=== PATIENT | female | born 1955 | race Caucasian/White ===

== ENCOUNTER → 2016-07-24 | Outpatient (CLI) | payer BC ==
[~2016-07-24] MED LIST: CHOL100010 PO; MULT-513 PO; OMEG10007 PO
== END | disposition home or self-care (01) ==
LOC: C.PAPS 14:05
PROVIDERS: ATTEND Obstetrics & Gynecology
DX: Z01.419 Encounter for gynecological examination (general) (routine) without abnormal findings (principal)

== ENCOUNTER → 2016-10-22 | Outpatient (CLI) | payer BC ==
--- NOTE | 2016-10-22 16:26 | MAMMOGRAPHY REPORT ---
BILATERAL DIGITAL SCREENING MAMMOGRAM TOMOSYNTHESIS WITH CAD: 10/22/2016 CLINICAL HISTORY: Routine screening. Patient has no complaints. TECHNIQUE: Breast tomosynthesis in addition to standard 2D mammography was performed. Current study was also evaluated with a Computer Aided Detection (CAD) system. COMPARISON: Comparison is made to exams dated: 10/07/2015 mammogram - [facility], 10/04/2014 mammogram, 09/21/2013 mammogram, and 09/12/2012 mammogram. BREAST COMPOSITION: There are scattered areas of fibroglandular density in both breasts. FINDINGS: There is a stable metallic biopsy marker in the left breast. A stable benign rim calcifica tion in the right breast. No suspicious mass, architectural distortion or cluster of suspicious micr ocalcifications is seen. IMPRESSION: ACR BI-RADS CATEGORY 1: NEGATIVE There is no mammographic evidence of malignancy. A 1 year screening mammogram is recommended. The pa tient will receive written notification of the results. Approximately 10% of breast cancers are not detected with mammography. A negative mammographic report should not delay biopsy if a clinically suggestive mass is present. Kaelyn Sunshine M.D. ay/:10/22/2016 14:45:54 Butter Liquefier: Marlys Jose, [facility] letter sent: Normal 1/2 BI-RADS Code: ACR BI-RADS Category 1: Negative
== END | disposition home or self-care (01) ==
LOC: C.MAMM 13:33
PROVIDERS: ATTEND Internal Medicine
DX: Z12.31 Encounter for screening mammogram for malignant neoplasm of breast (principal)

== ENCOUNTER → 2016-12-08 | Outpatient (CLI) | payer BC ==
--- NOTE | 2016-12-08 10:01 | DIAGNOSTIC IMAGING REPORT ---
RIGHT KNEE 3 VIEWS CLINICAL HISTORY: Right knee pain status post trauma COMPARISON: None. DISCUSSION: No acute fractures or dislocations are visualized. There is a dorsal patellar spur. There is equivocal small posterior loose body. IMPRESSION: Mild degenerative change. No acute fractures are visualized. Electronically signed by: Carson Love M.D. 12/08/2016 10:00 AM Dictated Date/Time: 12/08/2016 9:59 AM
--- NOTE | 2016-12-08 10:02 | DIAGNOSTIC IMAGING REPORT ---
RIGHT HIP UNILATERAL 2 VIEWS CLINICAL HISTORY: Right hip pain COMPARISON: None. DISCUSSION: No acute fractures or dislocations are visualized. There are labral calcifications present. There is a peritrochanteric calcification which appears chronic. IMPRESSION: No acute fractures. No erosive or destructive changes. Labral calcification. Electronically signed by: Carson Love M.D. 12/08/2016 10:01 AM Dictated Date/Time: 12/08/2016 10:00 AM
== END | disposition home or self-care (01) ==
LOC: C.RADBC 09:35
PROVIDERS: ATTEND Internal Medicine
DX: M25.551 Pain in right hip (principal); S89.91XA Unspecified injury of right lower leg, initial encounter; X58.XXXA Exposure to other specified factors, initial encounter

== ENCOUNTER → 2017-03-22 | Outpatient (CLI) | payer BC ==
[2017-03-22 11:31] LABS: ALT/SGPT 40 U/L (12-78); AST/SGOT 27 U/L (15-37); BLOOD UREA NITROGEN 13 mg/dl (7-18); BUN/CREATININE RATIO 20.6 (10-20); CALCIUM 8.7 mg/dl (8.5-10.1); CARBON DIOXIDE 27 mmol/L (21-32); CHLORIDE 105 mmol/L (98-107); CHOLESTEROL 235 mg/dl (0-200); CREATININE 0.63 mg/dl (0.60-1.20); GLUCOSE 89 mg/dl (70-99); SODIUM 139 mmol/L (136-145)
[2017-03-22 11:35] LABS: ALB/GLOB RATIO 1.1 (0.9-2); ALKALINE PHOSPHATASE 64 U/L (45-117); CHOLESTEROL/HDL RATIO 3.6; HDL CHOLESTEROL 66 mg/dl; LDL CHOLESTEROL CALCULATED 154 mg/dl; TRIGLYCERIDES 76 mg/dl (0-150); VERY LOW DENSITY LIPOPROT CALC 15 mg/dl
== END | disposition home or self-care (01) ==
LOC: C.LABBC 07:36
PROVIDERS: ATTEND Internal Medicine
DX: Z00.00 Encounter for general adult medical examination without abnormal findings (principal); Z87.19 Personal history of other diseases of the digestive system; E78.5 Hyperlipidemia, unspecified

== ENCOUNTER → 2017-07-26 | Outpatient (CLI) | payer BC | END | disposition home or self-care (01) | LOC: C.PAPS 14:02 | PROVIDERS: ATTEND Obstetrics & Gynecology | DX: Z01.419 Encounter for gynecological examination (general) (routine) without abnormal findings (principal) ==

== ENCOUNTER 2023-12-09 10:16 | Observation (INO) ==
--- NOTE | 2023-11-14 09:50 | PAT Medication Instructions ---
Medication Instructions Date of Service November 14, 2023 Home Medications cholecalciferol (vitamin D3) 25 mcg (1,000 unit) tablet 1,000 units PO QPM digestive enzymes 1 cap PO BID multivitamin (Daily Multi-Vitamin tablet) 1 tab PO QPM coenzyme Q10 200 mg capsule (Co Q-10) 100 mg PO QAM calcium carbonate (Calcium 500) 500 mg PO BID ipratropium bromide 21 mcg (0.03 %) nasal spray 2 spray intranasal BID PRN allergies pravastatin 20 mg tablet 20 mg PO QPM MEDICATION INSTRUCTIONS: Continue as directed ipratropium bromide 21 mcg (0.03 %) nasal spray 2 spray intranasal BID PRN allergies STOP taking 2 weeks before surgery coenzyme Q10 200 mg capsule (Co Q-10) 100 mg PO QAM DO NOT take the morning of surgery digestive enzymes 1 cap PO BID calcium carbonate (Calcium 500) 500 mg PO BID Take evening before surgery pravastatin 20 mg tablet 20 mg PO QPM cholecalciferol (vitamin D3) 25 mcg (1,000 unit) tablet 1,000 units PO QPM digestive enzymes 1 cap PO BID multivitamin (Daily Multi-Vitamin tablet) 1 tab PO QPM calcium carbonate (Calcium 500) 500 mg PO BID Other Notes Remember: NOTHING TO EAT OR DRINK AFTER MIDNIGHT If you have any questions please call us at [phone] or [phone] or [phone] or [phone]
--- NOTE | 2023-11-19 10:08 | Anesthesiology Consultation ---
Date of Service November 19, 2023 Assessment & Plan (1) Encounter for pre-operative examination: Chart Review Chart Review: Acceptable Risk for Surgery and Patient seen in Pre Admission Testing Teaching & Discussion Pre-Anesthesia Teaching/Discussion Notes: Instructed NPO after midnight before surgery, except medications with 15 cc of water. Medication instructions provided according to the PAT guidelines. History Surgery Operation Date: 12/09/23 12:10 Proposed Procedures p L3-L4, L4-L5 Lumbar Decompression - Aubrey Simon MD Height/Weight Height: 5 ft 3 in Weight: 55.3 kg Allergies Allergy/AdvReac Type Severity Reaction Status Date / Time Bactrim Allergy Mild RASH Verified 01/13/16 21:22 Cephalosporins Allergy Unknown RASH Verified 11/14/23 08:53 clindamycin Allergy Unknown PT NOT Verified 11/14/23 08:53 SURE REACTION fluoxetine [From Prozac] Allergy Unknown RASH, FACE Verified 11/14/23 08:53 SWELLING sulfamethoxazole Allergy Unknown RASH Verified 11/14/23 08:53 trimethoprim Allergy Unknown RASH Verified 11/14/23 08:53 minocycline AdvReac Unknown NAUSEA Verified 11/14/23 08:53 VOMITING moxifloxacin AdvReac Unknown NAUSEA Verified 11/14/23 08:53 VOMITING sertraline AdvReac Unknown N/V Verified 11/14/23 08:53 Medications Home Medications Medication Instructions Recorded Confirmed Last Taken cholecalciferol (vitamin D3) 25 1,000 units PO QPM 07/31/19 11/14/23 01/21/23 15:30 mcg (1,000 unit) tablet digestive enzymes 1 cap PO BID 07/31/19 11/14/23 07/26/21 multivitamin (Daily Multi-Vitamin 1 tab PO QPM 07/31/19 11/14/23 01/21/23 15:30 tablet) coenzyme Q10 200 mg capsule (Co 100 mg PO QAM 06/21/23 11/14/23 Unknown Q-10) calcium carbonate (Calcium 500) 500 mg PO BID 08/26/23 11/14/23 Unknown ipratropium bromide 21 mcg (0.03 2 spray intranasal BID PRN allegies 11/14/23 11/14/23 Unknown %) nasal spray pravastatin 20 mg tablet 20 mg PO QPM 11/14/23 11/14/23 Unknown Past Medical History Medical History (Updated 11/19/23 @ 12:27 by Aubrey Simon MD) Disc degeneration, lumbar GERD (gastroesophageal reflux disease) "silent reflux" History of anesthesia reaction reports trouble breathing with one surgery but most recent surgery was fine-patient unable to recall which surgery; sore throat with intubation in past Hypercholesterolemia Lumbar stenosis without neurogenic claudication Osteopenia after menopause Post-nasal drip chronic Seasonal affective disorder in remission Patient denies h/o stroke, seizures, heart attack, heart failure, DM, HTN, blood clots/DVTs or blood transfusions. Exercise / Class Metabolic Activity II 4-5 Yardwork/Stairs/Walk up hill (denies chest discomfort or shortness of breath with one flight of stairs) Past Family History Family History Grandfather Colorectal cancer paternal Father Myocardial infarction Mother , age 88 No problems noted. 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 History of repair of rotator cuff (2021) Right Shoulder Arthroscopy with Extensive Debridement History of tubal ligation Hx of bilateral cataract extraction (2021) Hx of LASIK S/P bilateral salpingo-oophorectomy S/P trigger finger release x 3, right hand Past Anesthesia History No Family Hx of Anesthesia Complications and Other (see above) History of PONV No Hx of PONV and No Hx of Motion Sickness Social History Smoking Status: Never smoker Do You Dip or Chew Tobacco: No Hx Alcohol Use: Yes Alcohol type: wine alcohol intake frequency: holidays/special occasions only Hx Substance Use: No substance use type: does not use Review of Systems Patient denies chest pain, shortness of breath, dyspnea on exertion, snoring, witnessed apneas, fever, chills, cough, wheezing, or palpitations. Physical Exam Vital Signs Vitals BP 118/73 P 72 TEMP 98.1 SP02 96% on RA RESP 18 Physical Patient resting comfortably in chair in no acute distress, alert and oriented, responding appropriately throughout visit Full cervical extension range of motion without pain TMD 3.5 finger breadths Mallampati Score 2 Dentition: intact, denies chipped or loose teeth, caps/crowns, implants or bridges Lungs: normal respiratory effort. Good air movement, clear throughout to auscultation, no adventitious breath sounds Cardiac: regular rate and rhythm, no murmurs noted Carotid arteries: negative bruit bilat Lab Results Anesthesia Preop Results Results Anesthesia Widget: WBC 6.66 K/ul (4.8-10.8) 11/19/23 Hgb 13.3 g/dl (12.0-16.0) 11/19/23 Hct 38.5 % (37.0-47.0) 11/19/23 Plt 258 K/uL (130-400) 11/19/23 Na 134 mmol/L (136-145) L 11/19/23 K 3.9 mmol/L (3.5-5.1) 11/19/23 Cl 104 mmol/L (98-107) 11/19/23 CO2 24 mmol/L (21-32) 11/19/23 BUN 18 mg/dl (6-23) 11/19/23 Creat 0.67 mg/dl (0.6-1.2) 11/19/23 Glucose Level 103 mg/dl (70-99(Fasting)) H 11/19/23 PT 10.9 Seconds (9.0-12.0) 11/19/23 PTT 27 Seconds (21-31) 11/19/23 INR 1.0 (0.9-1.1) 11/19/23 Blood Type O Positive 11/19/23 Antibody Screen NEGATIVE 11/19/23 Testing Electrocardiogram Date: 01/04/23 NSR, rate 64 bpm Nonspecific T wave abnormality Chest X-Ray Date: 11/19/23 No acute chest disease.
[2023-12-09] MEDS: LR 60ML/HR IV SCH (10:53)
[2023-12-09] MEDS ORDERED: PROMETHAZINE HCL 6.25 MG in SODIUM CHLORIDE 0.9% 50 ML IV PRN (12:06)
[2023-12-09] MEDS ORDERED: ePHEDrine sulfate 50 MG/ML AMP IV PRN (12:06)
[2023-12-09] MEDS ORDERED: HYDROmorphone INJ 2 MG/ML SYR/VIAL IV PRN (12:06)
[2023-12-09] MEDS ORDERED: HYDROmorphone INJ 1 MG/ML SYRINGE IV PRN (12:06)
[2023-12-09] MEDS ORDERED: fentaNYL citrate PF 100 MCG/2 ML VIAL IV PRN (12:06)
[2023-12-09] MEDS ORDERED: ONDANSETRON INJ 2 MG/ML 2 ML VIAL IV PRN ×2 (12:06→15:40)
[2023-12-09] MEDS ORDERED: ATROPINE SULFATE 0.1 MG/ML 10ML SYR IV PRN (12:06)
--- NOTE | 2023-12-09 12:39 | History & Physical Bridge Note ---
Date of Service December 09, 2023 History & Physical Bridge Note I have examined the patient, reviewed the History & Physical and in the interval since the performance of the History & Physical I have noted the following changes of clinical significance: no changes noted
[2023-12-09] MEDS ORDERED: MIDAZOLAM HCL 1 MG/ML 2ML VIAL ONE (12:53)
[2023-12-09] MEDS ORDERED: HYDROmorphone INJ 2 MG/ML SYR/VIAL ONE (12:53)
[2023-12-09] MEDS: ceFAZolin 2000MG 2,000 MG/15 ML SYR IV SCH (13:40)
[2023-12-09] MEDS ORDERED: ePHEDrine sulfate 50 MG/5 ML SYR ONE (13:51)
[2023-12-09] MEDS ORDERED: ROCURONIUM BROMIDE 10 MG/ML 5 ML VIAL IV ONE ×2 (14:04→14:21)
[2023-12-09] MEDS ORDERED: LIDOCAINE 2% 2 ML VIAL/AMP(20MG/ML) INFIL ONE (14:04)
[2023-12-09] MEDS ORDERED: PROPOFOL IV EMULSION 10 MG/ML 20 ML VIAL IV ONE (14:04)
[2023-12-09] MEDS ORDERED: DEXAMETHASONE SOD INJ 4 MG/ML VIAL ONE (14:04)
[2023-12-09] MEDS: BUPIVACAINE 0.5 % 5 MG/1 ML MPF 30ML VIAL ONE (15:16)
[2023-12-09] MEDS ORDERED: ONDANSETRON INJ 2 MG/ML 2 ML VIAL ONE (15:17)
[2023-12-09] MEDS ORDERED: SUGAMMADEX SODIUM 200 MG/2 ML VIAL IV ONE (15:18)
[2023-12-09] MEDS ORDERED: PHENYLEPHRINE 100MCG/ML 10ML SYR IV ONE (15:19)
[2023-12-09] MEDS: VANCOMYCIN HCL 1000MG/20ML VIAL ONE ×2 (15:20)
[2023-12-09] MEDS: FLOSEAL HEMOSTATIC MATRIX 10ML TOP ONE (15:21)
[2023-12-09] MEDS ORDERED: KETOROLAC 30 MG/ML VIAL ONE (15:26)
--- NOTE | 2023-12-09 15:36 | Post Operative Brief Note ---
PG Immediate Post Op with CF Date of Surgery December 09, 2023 Pre & Post Diagnosis Operation Date: 12/09/23 11:50 Pre-Op Diagnosis: Lumbar Radicular Pain, Low Back Pain Radiating to Right leg Post-Op Diagnosis: Lumbar Radicular Pain, Low Back Pain Radiating to Right leg I identified the patient and participated in the time-out.: Yes Procedure Operation Date: 12/09/23 11:50 Actual Procedures p L4-L5 Lumbar Decompression(Not Applicable) - Aubrey Simon MD Surgeon Aubrey Simon MD Assembly Instructions Writer none Estimated Blood Loss 20 Findings Consistent with Post-Op Diagnosis Specimens Specimen Description: no specimen per surgeon
[2023-12-09] MEDS ORDERED: HYDROmorphone INJ 0.5 MG/0.5 ML SYR IV PRN (15:40)
[2023-12-09] MEDS ORDERED: DO NOT ADMINISTER FLU VACCINE PRN (15:40)
[2023-12-09] MEDS ORDERED: LORazepam 0.5 MG in SYRINGE 0.25 ML IV PRN (15:40)
[2023-12-09] MEDS ORDERED: NALOXONE HCL 0.4 MG/1 ML VIAL/CARP IV PRN (15:40)
[2023-12-09] MEDS ORDERED: PROMETHAZINE HCL 12.5 MG in SODIUM CHLORIDE 0.9% 50 ML IV PRN (15:40)
[2023-12-09] MEDS ORDERED: SOD PHOSPHATE/SOD BIPHOSPHATE ENEMA 132 ML BTL PR PRN (15:40)
[2023-12-09] MEDS ORDERED: bisacodyL 10 MG SUPP PR PRN (15:40)
[2023-12-09] MEDS ORDERED: METOCLOPRAMIDE HCL INJ 5 MG/ML 2 ML VIAL IV PRN (15:40)
[2023-12-09] MEDS ORDERED: MAGNESIUM HYDROXIDE SUSP 30 ML UDC PO PRN (15:40)
[2023-12-09] MEDS ORDERED: FAMOTIDINE 20 MG TAB PO PRN (15:40)
[2023-12-09] MEDS ORDERED: diphenhydrAMINE Capsule 25 MG CAP PO PRN (15:40)
[2023-12-09] MEDS ORDERED: ALUMINUM/MAGNESIUM SUSP 30 ML UDC PO PRN (15:40)
[2023-12-09] MEDS ORDERED: DO NOT ADMINISTER PNEUMOCOCCAL VACCINE PRN (15:40)
[2023-12-09] MEDS ORDERED: oxyCODONE/ACETAMINOPHEN 5mg/325mg TAB PO PRN (15:40)
[2023-12-09] MEDS ORDERED: hydrOXYzine HCl 25 MG TAB PO PRN (15:40)
[2023-12-09] MEDS ORDERED: LORazepam 0.5 MG TAB PO PRN (15:40)
[2023-12-09] MEDS ORDERED: ONDANSETRON 4 MG OD TAB PO PRN (15:40)
[2023-12-09] MEDS ORDERED: ACETAMINOPHEN 1,000 MG/100 ML VIAL IV PRN (15:40)
[2023-12-09] MEDS: MEPERIDINE HCL 25 MG/ML CARP/VIAL IV ONE (16:55)
[2023-12-09] MEDS: MEPERIDINE HCL 25 MG/ML CARP/VIAL ONE (17:00)
--- NOTE | 2023-12-09 17:17 | Anesthesiology Progress Note ---
Date of Service December 09, 2023 Anesthesia Post Procedure Vital Signs Vital Signs: Temp Pulse Pulse Resp BP Pulse Ox O2 Del Method 12/09/23 17:00 70 12 127/82 98 Room Air 12/09/23 16:50 74 12 136/74 98 Room Air 12/09/23 16:40 36.4 C L 85 20 134/72 100 Room Air 12/09/23 16:30 69 18 129/72 99 Room Air 12/09/23 16:20 63 16 130/74 100 Room Air 12/09/23 16:10 63 12 135/74 99 Room Air 12/09/23 16:00 76 12 136/73 100 Oxymask 12/09/23 15:50 36 C L 73 18 141/76 H 99 Oxymask 12/09/23 10:47 36.5 C 84 18 159/101 H 97 Room Air O2 Flow Rate 12/09/23 17:00 12/09/23 16:50 12/09/23 16:40 12/09/23 16:30 12/09/23 16:20 12/09/23 16:10 12/09/23 16:00 3 12/09/23 15:50 6 12/09/23 10:47 Pain Intensity Right Leg: Pain Intensity: 4 Transfer of Care Handoff Completed per policy Notes Mental Status: alert / awake / arousable Patient Amnestic to Procedure: Yes Nausea / Vomiting: adequately controlled Pain: adequately controlled Airway Patency, RR, SpO2: stable & adequate BP & HR: stable & adequate Hydration State: stable & adequate Anesthetic Complications: no major complications apparent and Pt Satisfied with anesthetic care
[2023-12-09] MEDS ORDERED: IPRATROPIUM BROMIDE NASAL SPRAY 0.06% 15ML NAE PRN (17:43)
[2023-12-09] MEDS: LACTATED RINGER'S 1,000 ML IV SCH (17:44)
--- NOTE | 2023-12-09 17:54 | Fluoroscopy Report ---
FL lumbar spine 2-3V CLINICAL HISTORY: L4-L5 DECOMPRESSION COMPARISON STUDY: Lumbar spine MRI September 03, 2023. Lumbar spine radiographs November 19, 2023. FLUOROSCOPY TIME: 16.7 seconds. Ka, r: 5.08 mGy FLUOROSCOPIC IMAGES: 1 FINDINGS: Fluoroscopy was provided during L4-L5 decompression. Single lateral fluoroscopic image demo nstrates surgical retractors and instruments overlying the posterior elements at the L4-L5 level. IMPRESSION: Fluoroscopy provided during L4-L5 decompression. ACT 112: Negative or not required by law. Electronically signed by: Benton Thompson M.D. 12/09/2023 5:53 PM
--- NOTE | 2023-12-09 18:42 | Hospitalist Consultation ---
Date of Consultation December 09, 2023 Assessment & Plan (1) Lumbar stenosis with neurogenic claudication: Lumbar decompression s/p L4-L5 lumbar decompression 12/09/2023 -No immediate postoperative complications. Tolerating diet well. Transiently tachycardic, improving with p.o. Normotensiveambulation, pain control, DVT prophylaxis per primary team. Pain adequately controlled at time of bedside visit Chronic stable issues: Hyperlipidemia: Continue statin Osteopenia: Continue outpatient management, calciumvitamin D supplementation Appears well with no ongoing/unstable medical issues. Patient is pleasant, alert and no acute needs. Currently tachycardic postop, improved with bedside evaluation. Will check morning CBC/BMP. No acute changes recommended at this time. Patient has no questions or concerns at time of bedside visit. (2) Hypercholesterolemia with LDL greater than 190 mg/dL: History of Present Illness Attending Physician: Aubrey Simon MD History of Present Illness Ana Garcia is a 68-year-old female with a past medical history of lumbar radiculopathy, hyperlipidemia, external hemorrhoids, seasonal affective disorder, and osteopenia who presented for scheduled lumbar decompression for her lumbar radiculopathy. We are consulted for postoperative management of medical comorbidities. Hemodynamically stable postop. Normotensive. Preoperative lab review 11/19/2023: No leukocytosis, hemoglobin 13.3. Trace hyponatremia at 134. Renal function 0.67, baseline is less than 1. Since bedside. She reports that she is sinus congestion an and itchy throat. She otherwise feels well. No recent fever chills or sweats. Denies any medical problem stenosis hyperlipidemia well-controlled with pravastatin. No history of heart disease. Without any preceding angina or anginal activity. No shortness of breath. No diabetes. No n/v. Preop had R radiculopathy and discomfort from the R hip to heel. No pain at time of bedside assessment. Soft touch is intact in the feet bilaterally without asymmetry. Ankle dorsiflexion/plantarflexion 5/5 bilaterally and without pain. She has a little discomfort in her left hip which is unusual to her but think t his might have been positioning. No questions or concerns at bedside. Medical History: Reviewed Medications: Reviewed Surgical History: Reviewed Family history: Reviewed Allergies: Reviewed Social History: Reviewed Code Status: Full Allergies Allergy/AdvReac Type Severity Reaction Status Date / Time Bactrim Allergy Mild RASH Verified 01/13/16 21:22 Cephalosporins Allergy Unknown RASH Verified 12/09/23 10:43 clindamycin Allergy Unknown PT NOT Verified 12/09/23 10:43 SURE REACTION fluoxetine [From Prozac] Allergy Unknown RASH, FACE Verified 12/09/23 10:43 SWELLING sulfamethoxazole Allergy Unknown RASH Verified 12/09/23 10:43 trimethoprim Allergy Unknown RASH Verified 12/09/23 10:43 minocycline AdvReac Unknown NAUSEA Verified 12/09/23 10:43 VOMITING moxifloxacin AdvReac Unknown NAUSEA Verified 12/09/23 10:43 VOMITING sertraline AdvReac Unknown N/V Verified 12/09/23 10:43 Home Medications Medication Instructions Recorded Confirmed Type cholecalciferol (vitamin D3) 25 1,000 units PO QPM 07/31/19 12/09/23 History mcg (1,000 unit) tablet digestive enzymes 1 cap PO BID 07/31/19 12/09/23 History multivitamin (Daily Multi-Vitamin 1 tab PO QPM 07/31/19 12/09/23 History tablet) coenzyme Q10 200 mg capsule (Co 100 mg PO QAM 06/21/23 12/09/23 History Q-10) calcium carbonate (Calcium 500) 500 mg PO BID 08/26/23 12/09/23 History ipratropium bromide 21 mcg (0.03 2 spray intranasal BID PRN allegies 11/14/23 12/09/23 History %) nasal spray pravastatin 20 mg tablet 20 mg PO QPM 11/14/23 12/09/23 History Patient History Medical History GERD (gastroesophageal reflux disease) "silent reflux" Post-nasal drip chronic Osteopenia after menopause Seasonal affective disorder in remission Disc degeneration, lumbar Lumbar stenosis without neurogenic claudication Hypercholesterolemia History of anesthesia reaction reports trouble breathing with one surgery but most recent surgery was fine- patient unable to recall which surgery; sore throat with intubation in past Surgical History Hx of bilateral cataract extraction (2021) S/P trigger finger release x 3, right hand History of colonoscopy History of repair of rotator cuff (2021) Right Shoulder Arthroscopy with Extensive Debridement History of oral surgery tooth extraction History of tubal ligation History of carpal tunnel surgery right, > 10 years 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 Denies family history of Ovarian cancer Prostate cancer Breast cancer Social History Smoking Status: Never smoker Second Hand Exposure: No; Do You Dip or Chew Tobacco: No; Tobacco Cessation Education Requested by Patient: No Hx Alcohol Use: Yes Alcohol type: wine Alcohol Intake Frequency: 2-3 x/Week Hx Substance Use: No Preferred Language: Montenegrin Communication Ability: Effective Visual Impairment: Partially Limited Hearing Ability: Normal High Density Finishing Operator Required: No Beliefs That Will Affect Care: None marital status: Current Living Situation: Spouse current occupational status: retired How many Children do You have: 3 Other Information That Helps Us Care for You: No Feels Safe at Home: Yes Safety Concerns: Feels Safe At This Time Childhood Exposure to Second-Hand Smoke: Yes caffeine: Yes (coffee and tea occassionally ) Dental Care, Regularly: Yes Physical Activity Frequency: 5-6 Times per Week Seatbelt Use: always Sunscreen Use: Yes Assistive Devices: None Physical Exam Physical Exam: General: A&Ox3. NAD. Cooperative. HEENT: Atraumatic, normocephalic. Pulm: CTAB A&P. -wheezes, -rales, -rhonchi. Symmetrical chest rise. No increased work of breathing. No respiratory distress. Cardiac: RRR, -mrg. Radial pulses intact and symmetrical. Abdominal: Nontender, nondistended, soft. BS present. Lumbar Surgical site CDI Ext: Sensation soft touch intact feet bilaterally. Ankles are starting/plantarflexion 5/5 bilaterally. Cap refill brisk and hallux bilaterally Results & Data Results & Data Vital Signs (Past 12 Hours) Vital Signs Temp Pulse Pulse Pulse Resp BP Pulse Ox 12/09/23 18:30 97 H 16 131/72 95 12/09/23 17:56 36.6 C 70 14 125/74 97 12/09/23 17:30 36.4 C L 72 14 128/76 97 12/09/23 17:00 70 12 127/82 98 12/09/23 16:50 74 12 136/74 98 12/09/23 16:40 36.4 C L 85 20 134/72 100 12/09/23 16:30 69 18 129/72 99 12/09/23 16:20 63 16 130/74 100 12/09/23 16:10 63 12 135/74 99 12/09/23 16:00 76 12 136/73 100 12/09/23 15:50 36 C L 73 18 141/76 H 99 12/09/23 15:30 36.3 C L 71 16 148/78 H 97 12/09/23 10:47 36.5 C 84 18 159/101 H 97 O2 Del Method O2 Flow Rate 12/09/23 18:30 Room Air 12/09/23 17:56 Room Air 12/09/23 17:30 Room Air 12/09/23 17:00 Room Air 12/09/23 16:50 Room Air 12/09/23 16:40 Room Air 12/09/23 16:30 Room Air 12/09/23 16:20 Room Air 12/09/23 16:10 Room Air 12/09/23 16:00 Oxymask 3 12/09/23 15:50 Oxymask 6 12/09/23 15:30 Room Air 12/09/23 10:47 Room Air PG Care Time/CCT Total # of Minutes Spent Total Time Spent with Patient: Total time spent is greater than 50% in coordination of care (as documented) at patient's floor/unit and/or counseling patient: Coding Level of Care Code 98642 IN/OBS CONSULT LVL 2,35M Diagnoses Lumbar stenosis with neurogenic claudication M48.062 Hypercholesterolemia with LDL greater than 190 mg/dL E78.00
[2023-12-09] MEDS: DOCUSATE SODIUM/SENNA 50/8.6MG TAB PO SCH (21:39)
[2023-12-09] MEDS: ceFAZolin 1000MG 1,000 MG/7.5 ML SYR IV SCH (21:39)
[2023-12-10 00:36] VITALS: RESP 18
[2023-12-10] MEDS: POLYETHYLENE (MIRALAX) 17 GM PACK PO SCH (06:30)
--- NOTE | 2023-12-10 06:54 | Orthopedic Progress Note ---
Date of Service December 10, 2023 Subjective Patient postop day 1 from L4-5 lumbar decompression. Patient notes an improvement in the lower extremity preoperative symptoms, no significant back pain and has been ambulating in the hallway without issue. Neurovascularly intact, incision dry. Plan: Discharge to home today, instructions given relative to operative site care, follow-up in 2 weeks. Patient is not requesting any pain medication, will take Tylenol and/or ibuprofen. Review of Systems All systems reviewed & are unremarkable except as noted in HPI & below. Physical Exam . Results & Data Results & Data Laboratory Results . Diagnostic Findings . PG Care Time/CCT Total # of Minutes Spent Total Time Spent with Patient: Total time spent is greater than 50% in coordination of care (as documented) at patient's floor/unit and/or counseling patient: Coding Level of Care Code 13215 Post Operative Follow-Up
--- NOTE | 2023-12-10 06:57 | Discharge Summary ---
Date of Service December 10, 2023 Admission HPI (Per Admitting) Lumbar decompression L4-5 for stenosis. Principal Diagnosis Same as "Discharge Diagnosis" noted below under Discharge Instructions. Discharge Exam . Discharge Data Consultations 12/09/23 15:40 Consult Hospitalist Routine Procedures Performed Operation Date: 12/09/23 11:50 Actual Procedures p L4-L5 Lumbar Decompression(Not Applicable) - Aubrey Simon MD Ordered Studies 12/09/23 11:50 FL lumbar spine 2-3V Routine Hospital Course (1) Lumbar stenosis with neurogenic claudication: Postop day 1 from L4-5 lumbar decompression. PG Care Time/CCT Total # of Minutes Spent Total Time Spent with Patient: Total time spent is greater than 50% in coordination of care (as documented) at patient's floor/unit and/or counseling patient: Discharge Plan Discharge Items Patient Disposition: Home - Self-Care Reason For Visit: Lumbar Radicular Pain, Low Back Pain Radiating to Discharge Diagnosis: Lumbar stenosis with radiculopathy Condition on Discharge: Good Activity: As commented below Lifting: No more than 10 pounds Bathing: May shower/bathe in 3 days Weightbearing: Full weightbearing Non-emergency contact: Surgeon Call non-emergency contact if: your pain is worsening Follow-up/Referrals: Lucretia Hurtado MD [Primary Care Provider] - Diet: Regular Ambulatory Orders: Basic Metabolic Panel (Routine) Timeframe: 1 Day Location: Determined by Patient Ordered By: Tabatha Kay Attending Provider Instructions: Acetaminophen/ibuprofen as needed. Pending Studies at Discharge: No Stand-Alone Forms: [employer], Smoking Cessation Medications and DC Order Prescriptions: No Action cholecalciferol (vitamin D3) 25 mcg (1,000 unit) tablet 1,000 units PO QPM multivitamin [Daily Multi-Vitamin] Tablet 1 tab PO QPM digestive enzymes Capsule 1 cap PO BID Patient Comments: WITH EACH MEAL calcium carbonate [Calcium 500] 500 mg calcium (1,250 mg) tablet 500 mg PO BID coenzyme Q10 [Co Q-10] 200 mg capsule 100 mg PO QAM pravastatin 20 mg tablet 20 mg PO QPM ipratropium bromide 21 mcg (0.03 %) spray,non-aerosol 2 spray intranasal BID PRN (Reason: allegies) Rx Instructions: administer into each nostril Discharge Orders: Discharge Order (Routine); Ordered 12/10/23 Ordered By: Aubrey Simon Admission Data Admit Date/Time: 12/09/23 15:40 Attending Provider: Aubrey Simon Admit Provider: Aubrey Simon Primary Care Provider: Lucretia Hurtado Other Providers: Fernando Wilson; Kiley Graf; José Manuel Chavez; Andrea Zamudio; Bladimir Francois; Herson Berry; Nay Matt; Shell Valdivia; Allison Garcia; Julia Zhong; Steven Sanchez; King Echols; Juana Palm; Edvin Muhammad; José Manuel Goff; Tano Neves; Marily Horton; Verenice Hernandez E; Verenice Yates; Eloise Isaac; Yann Peoples; Agnes Koenig; Robert Ordaz; Kel Marion; Dora Avery; Taya Palomino; Paula Pretty; Magno Zhou; Shaw Crawford; Andrea Moreno; Bladimir Picknes; Yaneth Ingram; Kary De León; Flower Patel; Vladimir Heck
[2023-12-10 07:09] LABS: Basophils # (auto) 0.03 K/uL (0.00-0.20); Basophils % (auto) 0.3 %; Eosinophils # (auto) 0.01 K/uL (0.00-0.50); Eosinophils % (auto) 0.1 %; Hematocrit (blood only) 35.2 % (37.0-47.0); Hemoglobin 12.2 g/dl (12.0-16.0); Immature Granulocytes # (auto) 0.03 K/uL (0.01-0.20); Immature Granulocytes % (auto) 0.3 %; Lymphocytes # (auto) 1.17 K/uL (1.20-3.40); Lymphocytes % (auto) 12.1 %; Mean Corpuscular Hemoglobin 30.7 pg (25.0-34.0); Mean Corpuscular Hgb Conc 34.7 g/dL (32.0-36.0); Mean Corpuscular Volume 88.4 fL (80.0-100.0); Mean Platelet Volume 9.8 fL (9.4-12.4); Monocytes # (auto) 0.95 K/uL (0.11-0.59); Monocytes % (auto) 9.9 %; Neutrophils # (auto) 7.44 K/uL (1.40-6.50); Neutrophils % (auto) 77.3 %; Platelet Count 222 K/uL (130-400); RDW Coefficient of Variation 12.1 % (11.5-14.5); RDW Standard Deviation 39.2 fL (36.4-46.3); Red Blood Count 3.98 M/uL (4.20-5.40); White Blood Count 9.63 K/ul (4.8-10.8)
[2023-12-10 07:28] LABS: BUN Creatinine Ratio 16.1 (10-20); Calcium 9.1 mg/dl (8.6-10.3); Creatinine Clr Calc Pharmacy 69.8 ml/min; Est GFR (African American) 105.9 ml/min; Est GFR (Non-African American) 91.4 ml/min; Potassium 4.1 mmol/L (3.5-5.1)
[2023-12-10 07:57] VITALS: BP 171/76; PULSE 59; TEMP 97.9; O2SAT 100
[2023-12-10] MEDS: ACETAMINOPHEN 500 MG TAB PO PRN (09:21)
--- NOTE | 2023-12-13 07:55 | Operative Report ---
PG Post Operative Report Pre & Post Diagnosis Operation Date: 12/09/23 11:50 Pre-Op Diagnosis: Lumbar Radicular Pain, Low Back Pain Radiating to Right leg Post-Op Diagnosis: Lumbar Radicular Pain, Low Back Pain Radiating to Right leg I identified the patient and participated in the time-out.: Yes Procedure Operation Date: 12/09/23 11:50 Actual Procedures p L4-L5 Lumbar Decompression(Not Applicable) - Aubrey Simon MD Surgeon Aubrey Simon MD Motion Picture [employer] Worker none Estimated Blood Loss 20 Findings Consistent with Post-Op Diagnosis Specimens none Description of Procedure 1. L4-5 posterior lumbar decompression (78639) Patient was taken operating room and after adequate anesthesia, positioned prone on the Umair frame and checked for positioning. After doing so, preprepped was performed followed by bringing in fluoroscopy where I then marked for the area of the incision. Prep and drape was performed, I began the procedure with a midline incision over the L4-5 interspace advancing it down to the spinous processes and interlaminar region of L4-5. In this region I mobilized the muscle tissue away from this region followed by then removing the spinous process and performing bilateral hemilaminectomies, removal of the superior laminar edge of L5 and then decompressing along the medial facets bilaterally. This process continued with removal of thickened ligamentum flavum and decompressing of the bilateral L4 and L5 nerve roots. Once completed exploration did not reveal any issues, the operative site was irrigated followed by placement of vancomycin powder and local anesthetic. Operative site was closed using 0 and 2-0 Vicryl sutures in layers followed by alex for the skin. Sterile dressing was applied, patient tolerated procedure well was taken recovery in satisfied condition. I attest to the content of the Intraoperative Record and any orders documented therein. Any exceptions are noted below.
== END 2023-12-10 10:14 | disposition home or self-care (01) ==
LOC: 3N 10:16 → ASU 10:16